=== PATIENT | female | born 2000 | race Hispanic/Latino ===

== ENCOUNTER 2018-12-28 16:21 | Inpatient (IN) | payer OTHER ==
--- NOTE | 2018-12-28 18:54 | ED PDOC ---
HPI: Psych/Substance Abuse Time Seen by Provider: 12/28/18 18:30 Chief Complaint (Nursing): Psychiatric Evaluation Chief Complaint (Provider): Psychiatric Evaluation History Per: Patient History/Exam Limitations: no limitations Onset/Duration Of Symptoms: Days (X5) Current Symptoms Are (Timing): Still Present Associated Symptoms: Depression, Suicidal Thoughts, Suicidal Plan Additional History Per: Patient Additional Complaint(s): 18 year old female with a past medical history of depression presents to the ED for a psychiatric evaluation. Patient currently sees a psychiatrist and therapist. Therapist bought her in today to the ED. Patient states that she's feeling depressed and suicidal. Patient states that for the past 5 days, she's been feeling "down" having suicidal ideations. Patient reports that she went to the train station and was afraid that she was going to jump in front of the train. Patient is afraid of knives. Patient is a recovering from alcohol, her last usage was 48 days ago. Patient denies homicidal Ideation, and hallucinations. PMD: None Past Medical History Reviewed: Historical Data, Nursing Documentation, Vital Signs Vital Signs: Last Vital Signs Temp 98 F 12/28/18 16:50 Pulse 78 12/28/18 16:50 Resp 16 12/28/18 16:50 BP 112/64 12/28/18 16:50 Pulse Ox 99 12/28/18 16:50 DAVID Report Viewed: Yes - Medical History PMH: Depression - Surgical History Surgical History: No Surg Hx - Family History Family History: States: No Known Family Hx - Social History Current smoker - smoking cessation education provided: No Alcohol: Other (recovering, last usage was 48 days ago) Drugs: Denies - Allergies Allergies/Adverse Reactions: Allergies Allergy/AdvReac Type Severity Reaction Status Date / Time No Known Allergies Allergy Verified 12/28/18 16:49 Review of Systems ROS Statement: Except As Marked, All Systems Reviewed And Found Negative Constitutional: Negative for: Fever, Chills, Sweats, Weakness, Malaise, Weight l oss ENT: Negative for: Ear Pain Cardiovascular: Negative for: Chest Pain Respiratory: Negative for: Shortness of Breath, Wheezing Psych: Positive for: Depression, Suicidal ideation. Negative for: Other (homicidal ideations, and hallucinations ) Physical Exam - Reviewed Nursing Documentation Reviewed: Yes Vital Signs Reviewed: Yes - Physical Exam Appears: Positive for: Well (normal, calm, pleasant ) Head Exam: Positive for: ATRAUMATIC, NORMOCEPHALIC Skin: Positive for: Normal Color Eye Exam: Positive for: Normal appearance (good eye contact), EOMI, PERRL Cardiovascular/Chest: Positive for: Regular Rate, Rhythm. Negative for: Murmur Respiratory: Positive for: Normal Breath Sounds. Negative for: Respiratory Distress Gastrointestinal/Abdominal: Positive for: Normal Exam, Soft. Negative for: Tenderness Extremity: Positive for: Normal ROM (upper and Lower). Negative for: Pedal Edema, Deformity Neurological/Psych: Positive for: Awake, Alert, Oriented, Mood/Affect (normal, cooperative ). Negative for: Motor/Sensory Deficits Comments: Good hygiene - Laboratory Results Result Diagrams: 12/28/18 21:35 12/28/18 21:35 Urine POC: Negative - ECG ECG: Positive for: Viewed By Me ECG Rhythm: Positive for: Normal QRS Interpretation Of ECG: SIGNS AND SEEN BY DR. CANO O2 Sat by Pulse Oximetry: 99 (RA) Pulse Ox Interpretation: Normal Medical Decision Making Medical Decision Making: Time: 18:30 Initial Impression: Depression Plan: -Crisis Evaluation as ordered -1:1 observation continued -re-evaluation 20:57 Awaiting psychiatric disposition. 21:07 Patient will be admitted under Dr. Arredondo for depression. -U Preg -Urinalysis -CBC -CMP -UDS -UA -EKG LABS REVIEWED BY ME, PATIENT IS MEDICALLY CLEARED FOR PSYCH ADMISSION. PATIENT AWARE OF PLAN AND AGREES. Scribe Attestation: Documented by Jun Crews, acting as a scribe for Melissa Alexander APN. Provider Scribe Attestation: All medical record entries made by the Scribe were at my direction and personally dictated by me. I have reviewed the chart and agree that the record accurately reflects my personal performance of the history, physical exam, medical decision making, and the department course for this patient. I have also personally directed, reviewed, and agree with the discharge instructions and disposition. Disposition - Clinical Impression Clinical Impression: Depression Counseled Patient/Family Regarding: Diagnosis - Disposition Disposition Time: 22:30 Condition: STABLE - Pt Status Changed To: Hospital Disposition Of: Inpatient - Admit Certification Admit to Inpatient:: After my assessment, the patient will require hospitalizat ion for at least two midnights. This is because of the severity of symptoms shown, intensity of services needed, and/or the medical risk in this patient being treated as an outpatient. - POA Present On Arrival: None
[2018-12-28 21:46] LABS: BASO % 0.3 % (0.0-2.0); EOS # 0.2 K/uL (0.0-0.7); EOS % 2.6 % (0.0-4.0); HEMOGLOBIN 12.8 g/dL (12.0-16.0); LYMPH # 2.4 K/uL (1.0-4.3); LYMPH % 30.8 % (20.0-40.0); MEAN CELL VOLUME 86.2 fl (81.0-99.0); MEAN CORPUSCULAR HEMOGLOBIN 28.5 pg (27.0-31.0); MEAN PLATELET VOLUME 9.9 fl (7.2-11.7); MONO # 0.6 K/uL (0.0-0.8); MONO % 8.1 % (0.0-10.0); NEUT # 4.5 K/uL (1.8-7.0); NEUT % 58.2 % (50.0-75.0); NRBC % 0.1 % (0.0-0.0); RBC 4.5 Mil/uL (3.80-5.20); WHITE BLOOD COUNT 7.7 K/uL (4.8-10.8)
[2018-12-28 22:00] LABS: ALB/GLOB RATIO 1.4 (1.0-2.1)
[2018-12-28 22:05] LABS: ALBUMIN 4.6 g/dL (3.5-5.0); ALT/SGPT 36 U/L (9-52); AST/SGOT 28 U/L (14-36); BLOOD UREA NITROGEN 12 mg/dl (7-17); CALCIUM 9.6 mg/dL (8.4-10.2); GFR NON-AFRICAN AMERICAN > 60
[2018-12-28 22:33] LABS: BARBITURATES, UR NEGATIVE (NEGATIVE); BENZODIAZEPINES, UR NEGATIVE (NEGATIVE); OPIATES, UR NEGATIVE (NEGATIVE); PHENCYCLIDINE, UR NEGATIVE (NEGATIVE)
[2018-12-29] MEDS ORDERED: Magnesium Hydroxide Susp 30 ml UD PO PRN (00:01)
[2018-12-29] MEDS ORDERED: DiphenhydrAMINE 50 mg/ml Inj IM PRN (00:01)
[2018-12-29] MEDS ORDERED: Alum-Mag Hydrox-Simethicone Susp (30 mL) PO PRN (00:01)
--- NOTE | 2018-12-29 00:23 | PCM.BM ---
Treatment Plan Problems - Problems identified on initial assessmt Sucidal Ideation Date Initiated: 12/29/18 Time Initiated: 00:21 Assessment reference: NA Status: Active Altered Sleep Patterns Date Initiated: 12/29/18 Time Initiated: 00:22 Assessment reference: NA Status: Active Treatment assets and liabiliti Patient Assests: adapts well, cooperative, educated, self-reliant, ADL independent, physically healthy, good support system, negotiates basic needs Patient Liabilities: live alone, substance abuse - Milieu Protocol Maintain good personal hygiene: daily Encourage regular showers, every shift Remind patient to perform daily oral care, every shift Assist patient to perform ADL's Conduct patient checks and document Observation sheet: Q15 minutes Maintain personal safety: every shift Educate patient to report safety concerns to staff, every shift Monitor environment for contraband/sharps Medication safety: Monitor for expected outcome, potential side effects: every shift, Assess barriers to learning: every shift, Assess readiness for medication education: every shift
--- NOTE | 2018-12-29 07:14 | CARD ---
APPROVED REPORT Date of service: 12/28/2018 EKG Measurement Heart [id number] <Conclusion> Normal sinus rhythm Normal ECG
--- NOTE | 2018-12-29 08:33 | RAD ---
Date of service: 12/28/2018 HISTORY: medical clearance COMPARISON: No prior. TECHNIQUE: Chest PA and lateral views FINDINGS: LUNGS: No active pulmonary disease. PLEURA: No significant pleural effusion identified. No pneumothorax apparent. CARDIOVASCULAR: No aortic atherosclerotic calcification present. Normal cardiac size. No pulmonary vascular congestion. OSSEOUS STRUCTURES: No significant abnormalities. VISUALIZED UPPER ABDOMEN: Normal. OTHER FINDINGS: None. IMPRESSION: No acute cardiopulmonary disease appreciated.
--- NOTE | 2018-12-29 13:06 | PCM.PSYCH ---
Initial Psychiatric Evaluation - Initial Psychiatric Evaluation Type of Admission: Voluntary Legal Status: Capacity Chief Complaint (in patient's own words): I keep having intrusive thoughts of ways to hurt myself History of Present Illness and Precipitating Events: pt is 18 ys old fmale with previous diagnosis of depression, anxiety, alcohol abuse in early full remission brought to ER by therapist after expressing suicidal ideation with plan to jump infront of train or to use a knife pt has been suffering from depression since age 11, has history of self harm by cutting self superficially, for past few weeks became more depressed as her mother in [place] is batteling cancer and possibly in terminall stage, her best friend is daignosed with brain cancer, and feeling lonely away from family in [place] with financial stressors, pt also is under pressure with school work, pt few weeks ago started cutting her thigh superficially and also continued to have intrusive suicidal thoughts pt reported having obsessions of repeating certain themes in her mind and also over repeating her study material , denied compulsions, denied perceptual disturbances, denied active thoughts of self harm on the unit Current Medications: Active Medications Generic Name Dose Route Start Last Admin Trade Name Freq PRN Reason Stop Dose Admin Acetaminophen 650 mg 12/29/18 00:01 Tylenol 325mg Tab PO Q4 PRN Pain, moderate (4-7) Al Hydrox/Mg Hydrox/Simethicone 30 ml 12/29/18 00:01 Maalox Plus 30 Ml PO Q4 PRN Dyspepsia Aripiprazole 5 mg 12/30/18 09:00 Abilify PO DAILY JAEDN Diphenhydramine HCl 50 mg 12/29/18 00:01 Benadryl IM Q6 PRN Extrapyramidal S/S Unable PO Diphenhydramine HCl 50 mg 12/29/18 00:01 Benadryl PO Q6 PRN Extrapyramidal Symptoms Diphenhydramine HCl 50 mg 12/29/18 00:07 Benadryl PO HS PRN Sleep Fluvoxamine Maleate 50 mg 12/29/18 12:50 Luvox PO 12/29/18 12:51 STAT STA Fluvoxamine Maleate 50 mg 12/29/18 22:00 Luvox PO HS JADEN Lorazepam 2 mg 12/29/18 00:01 Ativan IM Q4 PRN Anxiety/Agitation,Unable PO Lorazepam 1 mg 12/29/18 00:01 Ativan PO Q8 PRN Anxiety/Agitation Magnesium Hydroxide 30 ml 12/29/18 00:01 Milk Of Magnesia PO HS PRN Constipation Past Psychiatric History - Past Psychiatric History Nature of Treatment: therapy and psychiatrist outpatient for last year Explanation of prior treatment: no hx of previous hospitalizations History of ETOH/Drug Use: hx of ALCOHOL ABUSE SINCE AGE 11 History of Family Illness: MATERNAL AUNT HAS HISTORY OF DERESSION Pertinent Medical Hx (Current Medical&Sleep Prob, Allergies): Allergies Allergy/AdvReac Type Severity Reaction Status Date / Time No Known Allergies Allergy Verified 12/28/18 16:49 Mental Status Examination - Personal Presentation Personal Presentation: Looks stated age - Affect Affect: Constricted, Depressed - Motor Activity Motor Activity: Psychomotor Retardation - Reliability in Providing Information Reliability in Providing Information: Good - Speech Speech: Relevant - Mood Mood: Depressed, Anxious - Formal Thought Process Formal Thought Process: No Impairment - Obsessions/Compulsions Obsessions: Yes Compulsions: No - Cognitive Functions Orientation: Person, Place Sensorium: Alert Attention/Concentration: Attentive - Risk Risk: Suicidal, Self-mutilation, Diminished functioning - Strength & Assets Inventory Strength & Assets Inventory: Family support, Education - Limitations Additional comments: LIVING AWAY FROM FAMILY DSM 5 DX - DSM 5 DSM 5 Diagnosis: major depression recurrent severe rule out /obsessive compulsive disorder alcohol use in early full remission - Recommended/Plan of Treatment Treatment Recommendations and Plan of Treatment: start abilify 2mg daily increase to 5mg daily start luvox 50mg daily increase to 50mg bid message left for private therapist for collateral information [phone] cbt group and supportive therapy
--- NOTE | 2018-12-29 15:34 | CP.PCM.CON ---
<Liliam Flores Mary - Last Filed: 12/29/18 15:25> History of Present Illness - History of Present Illness History of Present Illness: Medical Consult: Dr. Friedman 18 y/o F with PMHx of depression, anxiety, alcohol abuse admitted in Psych unit due to suicidal ideation. Patient seen and evaluated in Psych unit. Patient denies any complains at this evaluation. PMHx:depression, anxiety, alcohol abuse Allergies: NKDA Home meds:denies Shx: denies SocialHx: denies smoking, ETOH, and recreational drugs Review of Systems - Review of Systems All systems: reviewed and no additional remarkable complaints except (as per HPI) Past Patient History - Past Social History Alcohol: Other (recovering, last usage was 48 days ago) Drugs: Denies - CARDIAC Hx Cardiac Disorders: No Hx Hypertension: No - PULMONARY Hx Respiratory Disorders: No Hx Tuberculosis: No - NEUROLOGICAL Hx Neurological Disorder: No HX Cerebrovascular Accident: No Hx Seizures: No - HEENT Hx HEENT Problems: No - RENAL Hx Chronic Kidney Disease: No - ENDOCRINE/METABOLIC Hx Endocrine Disorders: No - HEMATOLOGICAL/ONCOLOGICAL Hx Cancer: No Hx Human Immunodeficiency Virus (HIV): No - INTEGUMENTARY Hx Dermatological Problems: No - MUSCULOSKELETAL/RHEUMATOLOGICAL Hx Musculoskeletal Disorders: No - GASTROINTESTINAL Hx Gastrointestinal Disorders: No - GENITOURINARY/GYNECOLOGICAL Hx Genitourinary Disorders: No Hx Sexually Transmitted Disorders: No - PSYCHIATRIC Hx Substance Use: No - SURGICAL HISTORY Hx Surgeries: No - ANESTHESIA Hx Anesthesia: No Meds Allergies/Adverse Reactions: Allergies Allergy/AdvReac Type Severity Reaction Status Date / Time No Known Allergies Allergy Verified 12/28/18 16:49 - Medications Medications: Current Medications Acetaminophen (Tylenol 325mg Tab) 650 mg PO Q4 PRN PRN Reason: Pain, moderate (4-7) Al Hydrox/Mg Hydrox/Simethicone (Maalox Plus 30 Ml) 30 ml PO Q4 PRN PRN Reason: Dyspepsia Aripiprazole (Abilify) 2 mg PO DAILY JADEN Diphenhydramine HCl (Benadryl) 50 mg IM Q6 PRN PRN Reason: Extrapyramidal S/S Unable PO Diphenhydramine HCl (Benadryl) 50 mg PO Q6 PRN PRN Reason: Extrapyramidal Symptoms Diphenhydramine HCl (Benadryl) 50 mg PO HS PRN PRN Reason: Sleep Fluvoxamine Maleate (Luvox) 50 mg PO DAILY JADEN Lorazepam (Ativan) 2 mg IM Q4 PRN PRN Reason: Anxiety/Agitation,Unable PO Lorazepam (Ativan) 1 mg PO Q8 PRN PRN Reason: Anxiety/Agitation Magnesium Hydroxide (Milk Of Magnesia) 30 ml PO HS PRN PRN Reason: Constipation Physical Exam - Constitutional Appears: Non-toxic, No Acute Distress - Eye Exam Eye Exam: Normal appearance - ENT Exam ENT Exam: Mucous Membranes Moist - Respiratory Exam Respiratory Exam: Clear to Auscultation Bilateral, NORMAL BREATHING PATTERN. absent: Rales, Rhonchi, Wheezes, Respiratory Distress, Stridor - Cardiovascular Exam Cardiovascular Exam: REGULAR RHYTHM, +S1, +S2 - GI/Abdominal Exam GI & Abdominal Exam: Normal Bowel Sounds, Soft. absent: Hernia, Rigid, Tenderness - Extremities Exam Extremities exam: Positive for: normal inspection. Negative for: calf tenderness, pedal edema - Back Exam Back exam: NORMAL INSPECTION. absent: CVA tenderness (L), CVA tenderness (R) - Neurological Exam Neurological exam: Alert, Oriented x3 - Psychiatric Exam Psychiatric exam: Normal Affect, Normal Mood - Skin Skin Exam: Dry, Normal Color, Warm Results - Vital Signs Recent Vital Signs: Last Vital Signs Temp 98.1 F 12/29/18 09:00 Pulse 78 12/29/18 09:00 Resp 18 12/29/18 09:00 BP 110/77 12/29/18 09:00 Pulse Ox 99 12/28/18 23:38 - Labs Result Diagrams: 12/28/18 21:35 12/28/18 21:35 Labs: Laboratory Results - last 24 hr 12/28/18 12/28/18 12/28/18 21:35 21:35 21:35 WBC 7.7 RBC 4.50 Hgb 12.8 Hct 38.8 MCV 86.2 MCH 28.5 MCHC 33.0 RDW 13.0 Plt Count 271 MPV 9.9 Neut % (Auto) 58.2 Lymph % (Auto) 30.8 [place] % (Auto) 8.1 Eos % (Auto) 2.6 Baso % (Auto) 0.3 Neut # (Auto) 4.5 Lymph # (Auto) 2.4 [place] # (Auto) 0.6 Eos # (Auto) 0.2 Baso # (Auto) 0.0 Sodium 139 Potassium 3.8 Chloride 101 Carbon Dioxide 28 Anion Gap 14 BUN 12 Creatinine 0.7 Est GFR ( Amer) > 60 Est GFR (Non-Af Amer) > 60 Random Glucose 82 Hemoglobin A1c Calcium 9.6 Total Bilirubin 0.4 AST 28 ALT 36 Alkaline Phosphatase 68 Total Protein 8.0 Albumin 4.6 Globulin 3.4 Albumin/Globulin Ratio 1.4 Triglycerides Cholesterol LDL Cholesterol Direct HDL Cholesterol Thyroxine (T4) TSH 3rd Generation Urine Opiates Screen Negative Urine Methadone Screen Negative Ur Barbiturates Screen Negative Ur Phencyclidine Scrn Negative Ur Amphetamines Screen Negative U Benzodiazepines Scrn Negative U Oth Cocaine Metabols Negative U Cannabinoids Screen Negative Alcohol, Quantitative < 10 12/29/18 12/29/18 08:35 08:35 WBC RBC Hgb Hct MCV MCH MCHC RDW Plt Count MPV Neut % (Auto) Lymph % (Auto) [place] % (Auto) Eos % (Auto) Baso % (Auto) Neut # (Auto) Lymph # (Auto) [place] # (Auto) Eos # (Auto) Baso # (Auto) Sodium Potassium Chloride Carbon Dioxide Anion Gap BUN Creatinine Est GFR ( Amer) Est GFR (Non-Af Amer) Random Glucose Hemoglobin A1c 5.1 Calcium Total Bilirubin AST ALT Alkaline Phosphatase Total Protein Albumin Globulin Albumin/Globulin Ratio Triglycerides 136 Cholesterol 156 LDL Cholesterol Direct 65 HDL Cholesterol 59 Thyroxine (T4) 6.42 TSH 3rd Generation 1.97 Urine Opiates Screen Urine Methadone Screen Ur Barbiturates Screen Ur Phencyclidine Scrn Ur Amphetamines Screen U Benzodiazepines Scrn U Oth Cocaine Metabols U Cannabinoids Screen Alcohol, Quantitative Assessment & Plan - Assessment and Plan (Free Text) Assessment: 18 y/o F with PMHx of depression, anxiety, alcohol abuse admitted in Psych unit due to suicidal ideation. Plan: Depression with suicidal ideation manage by Psychiatrist Anxiety manage by Psychiatrist DVT prophylaxis ambulating - Date & Time Date: 12/29/18 Time: 13:50 <Delaney Friedman - Last Filed: 12/30/18 15:28> Meds - Medications Medications: Current Medications Acetaminophen (Tylenol 325mg Tab) 650 mg PO Q4 PRN PRN Reason: Pain, moderate (4-7) Al Hydrox/Mg Hydrox/Simethicone (Maalox Plus 30 Ml) 30 ml PO Q4 PRN PRN Reason: Dyspepsia Aripiprazole (Abilify) 2 mg PO DAILY [facility] Last Admin: 12/30/18 08:39 Dose: 2 mg Diphenhydramine HCl (Benadryl) 50 mg IM Q6 PRN PRN Reason: Extrapyramidal S/S Unable PO Diphenhydramine HCl (Benadryl) 50 mg PO Q6 PRN PRN Reason: Extrapyramidal Symptoms Diphenhydramine HCl (Benadryl) 50 mg PO HS PRN PRN Reason: Sleep Fluvoxamine Maleate (Luvox) 75 mg PO DAILY [facility] Lorazepam (Ativan) 2 mg IM Q4 PRN PRN Reason: Anxiety/Agitation,Unable PO Lorazepam (Ativan) 1 mg PO Q8 PRN PRN Reason: Anxiety/Agitation Magnesium Hydroxide (Milk Of Magnesia) 30 ml PO HS PRN PRN Reason: Constipation Results - Vital Signs Recent Vital Signs: Last Vital Signs Temp 97.7 F 12/30/18 06:00 Pulse 91 H 12/30/18 06:00 Resp 17 12/30/18 06:00 BP 102/65 12/30/18 06:00 Pulse Ox 99 12/28/18 23:38 - Labs Result Diagrams: 12/28/18 21:35 12/28/18 21:35 Labs: Laboratory Results - last 24 hr 12/29/18 08:35 RPR Nonreactive Attending/Attestation - Attestation I have personally seen and examined this patient.: Yes I have fully participated in the care of the patient.: Yes I have reviewed all pertinent clinical information: Yes Notes (Text): 12/30/18 15:27 18-year-old female admitted to psych for suicidal ideation. Suicidal ideation and depression management per psych. Agree with findings and plan as above.
--- NOTE | 2018-12-30 11:30 | PCM.PYCHPN ---
Psychiatric Progress Note - Psychiatric Progress Note Patient seen today, length of contact: pt seen and evaluated. Patient Chief Complaint: pt has remained very depressed and anxious and still with fleeting suicidal thoughts and still with poor insight regarding her suicidal behavior and need further stabilization. Mental Status Examination - Cognitive Function Orientation: Person, Place Attention: Poor Concentration: Poor Association: WNL Fund of Knowledge: WNL - Mood Mood: Depressed, Anxious - Affect Affect: Constricted, Depressed - Formal Thought Process Formal Thought Process: No Impairment - Homicidal Ideation Homicidal Ideation: No Goal/Treatment Plan - Goal/Treatment Plan Progress Toward Problem(s) and Goals/Treatment Plan: will continue to stabilize pt with meds and monitor closely . disposition as per dr haider
[2018-12-31 05:59] VITALS: O2SAT 97
--- NOTE | 2018-12-31 14:36 | PCM.PYCHPN ---
Psychiatric Progress Note - Psychiatric Progress Note Patient seen today, length of contact: pt seen and evaluated. Patient Chief Complaint: pt has remained very depressed and anxious but reports decrease in fleeting suicidal thoughts and still with poor insight regarding her suicidal behavior and need further stabilization. Medication Change: No Medical Record Reviewed: Yes Mental Status Examination - Cognitive Function Orientation: Person, Place Attention: Poor Concentration: Poor Association: WNL Fund of Knowledge: WNL - Mood Mood: Depressed, Anxious - Affect Affect: Constricted, Depressed - Formal Thought Process Formal Thought Process: No Impairment - Homicidal Ideation Homicidal Ideation: No Goal/Treatment Plan - Goal/Treatment Plan Progress Toward Problem(s) and Goals/Treatment Plan: will continue to stabilize pt with meds and monitor closely . disposition as per dr haider
--- NOTE | 2019-01-01 15:44 | PCM.PYCHPN ---
Psychiatric Progress Note - Psychiatric Progress Note Patient seen today, length of contact: pt seen and evaluated. Patient Chief Complaint: I still have intrusive thoughts to hurt myself Problems Identified/Issues Discussed: PT EVALUATED, REPORTED CONTINUES TO BE DEPRESSED RATING HER DEPRESSION 03/28 ALSO CONTINUES TO HAVE INTRUSIVE THOUGHTS ABOUT HURTING HERSELF BY JUMPING INFRONT OF A TRAIN PT REPORTED FEELING FEARFUL ABOUT GOING BACK TO [place] STATING IT MAKES HER FEEL MORE DEPRESSED, DISCUSSED INCREASING ABILIFY AND LUVOX GRADUALLY PT DENIED ACTIVE THOUGHTS OF SELF HARM ON THE UNIT , DENIED PERCEPTUAL DISTURBANCES Medical Problems: no hx of previous hospitalizations DSM 5 Symptoms Update: major depression recurrent severe OCD Medication Change: Yes (INCREASE LUVOX ) Medical Record Reviewed: Yes Mental Status Examination - Cognitive Function Orientation: Person, Place Attention: WNL Concentration: WNL Association: WNL Fund of Knowledge: [facility] Decription of patient's judgement and insights: partial insight fair judgment - Mood Mood: Depressed, Anxious - Affect Affect: Constricted, Depressed - Speech Speech: Soft - Formal Thought Process Formal Thought Process: No Impairment Psychotic Thoughts and Behaviors: denied , non elicited - Suicidal Ideation Suicidal Ideation: Yes - Homicidal Ideation Homicidal Ideation: No Goal/Treatment Plan - Goal/Treatment Plan Need for Continued Stay: Remain at risks for inpatient hospitalization, Severe depression anxiety Progress Toward Problem(s) and Goals/Treatment Plan: increase abilify 5mg daily increase luvox 50mg bid cbt group and supportive therapy
--- NOTE | 2019-01-02 15:49 | PCM.PYCHPN ---
Psychiatric Progress Note - Psychiatric Progress Note Patient seen today, length of contact: pt seen and evaluated. Patient Chief Complaint: I had intrusive thoughts about hurting myself at night, it was hard to sleep Problems Identified/Issues Discussed: PT evaluated , reported feeling less depressed during the day , however continues to have repetitive intrusive suicidal thoughts at night, pt reported having OCD symptoms since age 11 which affected her study pattern with frequent repetition , at current time it presents in the form of self harm thoughts, discussed with pt coping skills with the thoughts, she continues to present with depressed mood and affect when talking abou her mother illness and the fear of loosing her but continues to express that she is not willing to go back to [place] during her summer break discussed increasing the dose of luvox , no reported side effects pt denied active thoughts of self harm on the unit denied perceptual disturbances Medical Problems: no hx of previous hospitalizations DSM 5 Symptoms Update: major depression recurrent ocd Medication Change: Yes (INCREASE LUVOX ) Medical Record Reviewed: Yes Mental Status Examination - Cognitive Function Orientation: Person, Place Attention: WNL Concentration: WNL Association: WNL Fund of Knowledge: WN Decription of patient's judgement and insights: partial insight fair judgment - Mood Mood: Depressed, Anxious - Affect Affect: Constricted, Depressed - Speech Speech: Soft - Formal Thought Process Formal Thought Process: No Impairment Psychotic Thoughts and Behaviors: denied , non elicited - Suicidal Ideation Suicidal Ideation: Yes - Homicidal Ideation Homicidal Ideation: No Goal/Treatment Plan - Goal/Treatment Plan Need for Continued Stay: Remain at risks for inpatient hospitalization, Severe depression anxiety Progress Toward Problem(s) and Goals/Treatment Plan: increase abilify 5mg daily increase luvox 50mg daily and 100mg qhs cbt group and supportive therapy
[2019-01-03 05:43] VITALS: RESP 18
--- NOTE | 2019-01-03 15:43 | PCM.PYCHPN ---
Psychiatric Progress Note - Psychiatric Progress Note Patient seen today, length of contact: pt seen and evaluated. Patient Chief Complaint: I feel better with the increase in medicine Problems Identified/Issues Discussed: PT evaluated , seen in day room, observed to be more interactive with staff members and other patients , noted to hav a brighter affect, stated feeling less anxious and less depressed, rating her depression 4/10 and rating her intrusive suicidal thoughts 2/10, no reported side effects with the increase in medicine discussed with pt importance of intensive therapy on discharge discussed starting high focus upon finishing her finals , no reported changes in sleep or appetite pt denied active thoughts of self harm on the unit denied perceptual disturbances Medical Problems: no hx of previous hospitalizations Medication Change: No Medical Record Reviewed: Yes Mental Status Examination - Cognitive Function Orientation: Person, Place Attention: WNL Concentration: WNL Association: WNL Fund of Knowledge: WN Decription of patient's judgement and insights: partial insight fair judgment - Mood Mood: Depressed, Anxious - Affect Affect: Constricted, Depressed - Speech Speech: Soft - Formal Thought Process Formal Thought Process: No Impairment Psychotic Thoughts and Behaviors: denied , non elicited - Suicidal Ideation Suicidal Ideation: Yes - Homicidal Ideation Homicidal Ideation: No Goal/Treatment Plan - Goal/Treatment Plan Need for Continued Stay: Remain at risks for inpatient hospitalization, Severe depression anxiety Progress Toward Problem(s) and Goals/Treatment Plan: abilify 5mg daily luvox 50mg daily and 100mg qhs cbt group and supportive therapy
[2019-01-04 05:44] VITALS: BP 124/63; PULSE 74; TEMP 97.1
== END 2019-01-04 13:10 | disposition home or self-care (01) | DRG 885 ==
LOC: H.ER 16:21 → H.ERHOLD 22:55 → H.PSYCH 23:50 → H.STEP 12-29 18:13
PROVIDERS: ADMIT Psychiatry & Neurology Psychiatry; ATTEND Psychiatry & Neurology Psychiatry
PROC: GZHZZZZ Group Psychotherapy (ICD-10-PCS; principal; 2018-12-28)
PROC: GZ58ZZZ Individual Psychotherapy, Cognitive-Behavioral (ICD-10-PCS; 2018-12-28)
DX: F33.2 Major depressive disorder, recurrent severe without psychotic features (principal); R45.851 Suicidal ideations; F42.9 Obsessive-compulsive disorder, unspecified; F10.10 Alcohol abuse, uncomplicated; F41.9 Anxiety disorder, unspecified; Z91.5 Personal history of self-harm